=== PATIENT | female | born 1940 | race Caucasian/White ===

== ENCOUNTER 2018-11-02 08:23 | Day surgery (SDC) | payer MEDICARE ==
[~2018-11-02] VITALS: Ht 152.4 cm; Wt 50.0 kg
[2018-11-02] VITALS (13 sets, daily range): BP systolic 104–144; BP diastolic 50–78; PULSE 66–74; RESP 15–24; Ht 152.4 cm; Wt 50.0 kg
[~2018-11-02 08:23] MED LIST: AMLO-147 PO; CEFAZOLIN 2 GM/50 ML (PMX) 50 ML IVPB ONE; LACTATED RINGER'S 1,000 ML IV SCH; LEVO50TA7 PO; LOSA25TA12 PO; MELO7.5T38 PO; METO-319 PO; RANI150T5 PO; RSV10T PO
[2018-11-02] MEDS ORDERED: ACETAMINOPHEN 500 MG TAB PO ONE (08:30)
[2018-11-02] MEDS ORDERED: hydrALAzine 20 MG INJ IV PRN (09:30)
[2018-11-02] MEDS ORDERED: KETOROLAC 15 MG INJ IV PRN (09:30)
[2018-11-02] MEDS ORDERED: EPHEDrine 25 MG/5 ML SYG IV PRN (09:30)
[2018-11-02] MEDS ORDERED: ATROPINE 1 MG/10 ML SYRINGE IV PRN (09:30)
[2018-11-02] MEDS ORDERED: ONDANSETRON 4 MG INJ IV PRN (09:30)
[2018-11-02] MEDS ORDERED: LABETALOL HCL 20MG INJ IV PRN (09:30)
[2018-11-02] MEDS ORDERED: ALBUTEROL 0.083% (NEB) 2.5 MG/3 ML AMP HHN PRN (09:30)
[2018-11-02] MEDS ORDERED: DIPHENHYDRAMINE 50 MG INJ IV PRN (09:30)
[2018-11-02] MEDS ORDERED: HYDROmorphONE 1 MG/5 ML IV SYRINGE IV PRN (09:30)
[2018-11-02] MEDS ORDERED: LEVALBUTEROL (NEB) 0.63 MG/3 ML AMP HHN PRN (09:30)
[2018-11-02] MEDS ORDERED: FENTAnyl 50 MCG/ML VIAL IV PRN (09:30)
[2018-11-02] MEDS ORDERED: EPHEDrine 25 MG/5 ML SYG ONE (10:00)
[2018-11-02] MEDS ORDERED: ETOMIDATE 20 MG INJ ONE (10:00)
[2018-11-02] MEDS ORDERED: PHENYLephrine (100 MCG/ML) 10ML SYG ONE (10:00)
[2018-11-02] MEDS ORDERED: MIDAZOLAM 1 MG/ML 2 ML INJ ONE (10:06)
[2018-11-02] MEDS ORDERED: FENTAnyl 50 MCG/ML VIAL ONE (10:06)
[2018-11-02] MEDS ORDERED: CEFAZOLIN 1 GM INJ ONE (10:06)
[2018-11-02] MEDS ORDERED: LACTATED RINGER'S 1,000 ML IV SCH (10:30)
[2018-11-02] MEDS ORDERED: SOD CHLORIDE 0.9% 1,000 ML IV SCH (10:30)
[2018-11-02] MEDS ORDERED: BUPIVACAINE 0.5% (SDV) 30 ML INJ ONE (10:42)
[2018-11-02] MEDS ORDERED: POLYMYXIN/BACITRACIN 1L IRRIG IRR ONE (11:13)
[2018-11-02] MEDS ORDERED: KETOROLAC 30 MG INJ ONE (12:32)
== END 2018-11-02 14:40 | disposition home or self-care (01) ==
LOC: SDS 08:23
PROVIDERS: ATTEND Podiatrist Foot & Ankle Surgery
DX: M20.41 Other hammer toe(s) (acquired), right foot (principal); M89.371 Hypertrophy of bone, right ankle and foot; I10 Essential (primary) hypertension; E03.9 Hypothyroidism, unspecified; E78.5 Hyperlipidemia, unspecified
CPT/HCPCS: 73630; 82962; 88304; 88311; C1713; J0690; J1885; J2250; J2370; J3010; L3260